=== PATIENT | female | born 1980 | race African-American/Black ===

== ENCOUNTER 2017-02-28 22:01 | Emergency (ER) | payer MEDICAID, OTHER ==
[~2017-02-28] VITALS: Ht 165.1 cm; Wt 68.2 kg
[2017-02-28 22:05] VITALS: BP 157/104
== END 2017-03-01 04:07 | disposition left against medical advice (07) ==
LOC: ER 22:01
DX: Z04.3 Encounter for examination and observation following other accident (principal); Z53.21 Procedure and treatment not carried out due to patient leaving prior to being seen by health care provider